=== PATIENT | female | born 1955 | race Caucasian/White ===

== ENCOUNTER 2018-02-27 05:47 | Observation (INO) | payer OTHER ==
--- NOTE | 2018-02-14 14:23 | HP ---
HISTORY AND PHYSICAL: DATE OF ADMISSION/SURGERY: 02/27/18 DATE OF OFFICE VISIT: 02/14/18 SURGEON: Heather Garcia MD * (DICTATED BY TALHA NGUYEN) PROCEDURE: Left total knee arthroplasty. CHIEF COMPLAINT: Left knee pain. HISTORY OF PRESENT ILLNESS: Ms. Hughes is a 62-year-old female with continued complaints of left knee pain secondary to end-stage osteoarthritis. She has failed conservative treatment and elected to proceed with a left total knee arthroplasty. PAST MEDICAL HISTORY: High cholesterol and hypothyroidism. PAST SURGICAL HISTORY: Right total knee arthroplasty, right carpal tunnel release. CURRENT MEDICATIONS: 1. Atorvastatin calcium 20 mg daily. 2. Levothyroxine 25 mcg daily. 3. Vitamin D3. 4. Meloxicam. ALLERGIES: PENICILLIN, SULFA, and LATEX. FAMILY HISTORY: Diabetes, heart disease, and stroke. SOCIAL HISTORY: She is a 62-year-old female, she lives with her . She does not smoke or use drugs. She uses occasional alcohol. REVIEW OF SYSTEMS: A complete 14-point review of systems was reviewed with the patient, was positive for hypothyroidism. She denies a history of DVT, PE, hepatitis, HIV, or anesthesia problems. PHYSICAL EXAMINATION GENERAL: She is well developed, well nourished, in no acute distress. VITAL SIGNS: She stands 67 inches tall, weighs 190 pounds. Her blood pressure is 122/70 and her heart rate is 78. HEENT: Normocephalic, atraumatic. NECK: Supple. No palpable lymph nodes. PULMONARY: The lungs are clear to auscultation bilaterally. CARDIO: Regular rate and rhythm. Strong S1, S2. ABDOMEN: Soft, nontender, nondistended. NEUROLOGICAL: She is alert and oriented x3. Cranial nerves II through XII are intact. MUSCULOSKELETAL: Left lower extremity: The skin is intact. There are no open wounds or abrasions. She has a moderate joint effusion. There is a 12-degree valgus deformity of the knee that corrects passively by 5 degrees. Her range of motion is 5 to 120 degrees of flexion. She has tenderness over the medial and lateral joint line. 2+ dorsalis pedis pulses. Intact sensation in her lower extremity. Muscle group strengths are intact at 5/5. ASSESSMENT AND PLAN: Ms. Hughes is a 62-year-old female with complaints of left knee pain due to end-stage osteoarthritis. She has failed conservative treatment and elected to proceed with a left total knee arthroplasty, which is scheduled for 02/27/[address] Garcia discussed the risks and the benefits of the surgery at today's visit and all of her questions were answered. She will follow up with Dr. Garcia 2 weeks after the surgery. TALHA NGUYEN [id number]/[facility] #: [id number] [facility]ITALMair
[~2018-02-27 05:47] MED LIST: Buffered Lidocaine 0.9% SYRIN* 5 ML/SYR SYRINGE INTRADERM ONE
[2018-02-27] MEDS ORDERED: Acetaminophen TAB* 325 MG PO ONE (06:00)
[2018-02-27] MEDS ORDERED: celeCOXIB CAP* 200 MG PO ONE (06:00)
[2018-02-27] MEDS ORDERED: Gabapentin CAP(*) 300 MG PO ONE (06:00)
[2018-02-27] MEDS ORDERED: celeCOXIB CAP* 100 MG ONE (06:10)
[2018-02-27] MEDS ORDERED: Acetaminophen TAB* 325 MG ONE (06:10)
[2018-02-27] MEDS ORDERED: Gabapentin CAP(*) 300 MG ONE (06:10)
[2018-02-27] MEDS ORDERED: Tranexamic Acid 1,000 MG/10 ML SDV IV ONE (06:11)
[2018-02-27] MEDS ORDERED: Clindamycin 900 MG IVPREMIX(* 900 MG/50 ML SDV IV ONE (06:11)
[2018-02-27] MEDS ORDERED: Bupivacaine 0.5% PF 10 ML VIAL INJ ONE ×2 (06:59→08:15)
[2018-02-27] MEDS ORDERED: fentaNYL* 50 MCG/ML 2 ML VIAL (100 MCG VIAL) ONE (07:02)
[2018-02-27] MEDS ORDERED: Midazolam* 1 MG/ML 2 ML VIAL (2 MG) ONE ×2 (07:03→08:26)
[2018-02-27] MEDS ORDERED: ROPIVACAINE 5 MG/ML 30 ML BTL (0.5%) ONE (07:15)
[2018-02-27] MEDS ORDERED: Famotidine IV* 10 MG/ML 2 ML (20 mg) ONE (07:52)
[2018-02-27] MEDS ORDERED: Dexamethasone IV* 4 MG/ML 1 ML (4 MG) ONE (07:52)
[2018-02-27] MEDS ORDERED: diPHENhydraMINE IV* 50 MG/ML 1 ml VIAL (BENADRYL) ONE (07:52)
[2018-02-27] MEDS ORDERED: Dexmedetomidine* 200 MCG/2 ML 2 ML VIAL ONE (07:53)
[2018-02-27] MEDS ORDERED: Bupivacaine-MPF SPINAL* 7.5 MG/ML - 2ML AMP ONE (08:15)
[2018-02-27] MEDS ORDERED: Hetastarch 6% in NS* 500 ML IV ONE (08:27)
[2018-02-27] MEDS ORDERED: Ondansetron ODT TAB* 4 MG PO PRN (08:50)
[2018-02-27] MEDS ORDERED: HYDROmorphone INJ* 0.5 MG/0.5 ML SYRINGE IV PRN (08:50)
[2018-02-27] MEDS ORDERED: Acetaminophen TAB* 325 MG PO PRN ×2 (08:50→10:05)
[2018-02-27] MEDS ORDERED: Naloxone* 0.4 MG/ML 1 ML VIAL IV PRN (08:50)
[2018-02-27] MEDS ORDERED: Nalbuphine* 10 MG/ML 1 ML VIAL IV PRN (08:50)
[2018-02-27] MEDS ORDERED: Scopolamine 1.5 mg* PATCH TRANSDERM PRN (08:50)
[2018-02-27] MEDS ORDERED: HYDROcodone/ACETAMIN 5-325 MG* 1 TAB PO PRN ×2 (08:50)
[2018-02-27] MEDS ORDERED: DiMENhydriNATE IV* 50 MG/ML VIAL IV PUSH PRN (08:50)
[2018-02-27] MEDS ORDERED: PROCHLORPERAZINE INJ 5 MG/ML 2 ML VIAL IV PRN (08:50)
[2018-02-27] MEDS ORDERED: diPHENhydraMINE IV* 50 MG/ML 1 ml VIAL (BENADRYL) IV PRN ×2 (08:50→10:05)
[2018-02-27] MEDS ORDERED: fentaNYL* 50 MCG/ML 2 ML VIAL (100 MCG VIAL) IV PRN (08:50)
[2018-02-27] MEDS ORDERED: Ondansetron INJ* 2 MG/ML VIAL IV PRN ×2 (08:50→10:05)
[2018-02-27] MEDS ORDERED: Polyethylene Glycol 3350* 17 GM PACKET PO PRN (10:05)
[2018-02-27] MEDS ORDERED: Cyclobenzaprine TAB* 10 MG PO PRN (10:05)
[2018-02-27] MEDS ORDERED: Bisacodyl SUPP* 10 MG SUPP PR PRN (10:05)
[2018-02-27] MEDS ORDERED: Ondansetron TAB* 4 MG PO PRN (10:05)
[2018-02-27] MEDS ORDERED: Magnesium Hydroxide LIQ* 30 ML UDC PO PRN (10:05)
[2018-02-27] MEDS ORDERED: HYDROmorphone INJ* 0.5 MG/0.5 ML SYRINGE IV SLOW PU PRN (10:12)
--- NOTE | 2018-02-27 11:06 | RAD ---
HISTORY: s/p left TKA COMPARISONS: January 17, 2018 VIEWS: 2, Frontal and lateral views of the left knee FINDINGS: BONE DENSITY: Normal. BONES: The patient is status post left knee arthroplasty. There is no hardware failure or osteolysis. JOINTS: The patient is status post left knee arthroplasty. ALIGNMENT: There is no dislocation. SOFT TISSUES: There is postsurgical change to the soft tissues. OTHER FINDINGS: None. IMPRESSION: STATUS POST LEFT KNEE ARTHROPLASTY
[2018-02-27] MEDS: oxyCODONE TAB* 5 MG TAB PO PRN ×2 (14:13→19:08)
[2018-02-27] MEDS: Clindamycin 600 MG IVPREMIX(* 600 MG/50 ML SDV IV SCH (16:06)
[2018-02-27] MEDS ORDERED: Warfarin TAB(*) 6 MG PO ONE (17:00)
[2018-02-27] MEDS: oxyCODONE/Acetamin 5/325 MG* TAB PO PRN ×2 (17:32→21:22)
[2018-02-27] MEDS: Magnesium Hydroxide LIQ* 30 ML UDC PO SCH (21:22)
[2018-02-27] MEDS: Docusate CAP* 100 MG PO SCH (21:22)
--- NOTE | 2018-02-28 | OP ---
DATE OF OPERATION: 02/27/18 - ROOM #342 DATE OF : 59. ATTENDING SURGEON: Heather Garcia M.D. WAREHOUSE PICKER: TALHA Colbert. Ms. Remy did help throughout the procedure with preparation of the leg, wound retraction, manipulation of the knee, and wound closure. ANESTHESIOLOGIST: Dr. Lawrence. ANESTHESIA: Spinal. PRE-OP DIAGNOSES: Severe end-stage degenerative osteoarthritis of the left knee joint, valgus deformity. POST-OP DIAGNOSES: Severe end-stage degenerative osteoarthritis of the left knee joint, valgus deformity. OPERATIVE PROCEDURE: Left total knee arthroplasty. BRIEF HISTORY/INDICATIONS: Ms. Hughes is a 63-year-old female with years of increasingly severe left knee pain. She failed conservative treatment with antiinflammatories, pain medications, intraarticular injections, and physical therapy. Due to continued pain and decreased quality of life, she elected to undergo a left total knee arthroplasty. Informed consent was obtained from the patient. She understood the risks of surgery included, but were not limited to bleeding, infection, damage to nearby structures, continued pain, need for further surgery, intraoperative fracture, nerve palsy, hardware failure or loosening, knee stiffness, loss of motion, stroke, heart attack, blood clot, and . She wishes to proceed. INTRAOPERATIVE FINDINGS: Intraoperatively, the patient was noted to have a 15- degree valgus deformity throughout the case. This was corrected to anatomic 5 degrees by the end of the case. She had full-thickness loss of cartilage in the lateral, medial, and patellofemoral compartments. She had lateral femoral condylar hypoplasia. COMPLICATIONS: None. ESTIMATED BLOOD LOSS: 200 mL. TOURNIQUET TIME: 45 minutes. SPECIMENS: Bone and cartilage from the left knee joint sent to Pathology. HARDWARE USED: This is a cemented [employer] total knee arthroplasty hardware. Two packages of simplex bone cement were used. For the femur, a left Legion 6 narrow Oxinium posterior stabilized femoral component. For the tibia, a left Kallie II size 5 tibial baseplate. For the insert, a 9-mm posterior stabilized articular insert size 5/6. For the patella, a 32-mm, 3- peg all poly patella with 7.5 thickness. DESCRIPTION OF PROCEDURE: Ms. Hughes was identified in the preanesthesia unit. Her left lower extremity was marked as the correct operative side. Informed consent was signed and placed in the chart. The patient was taken to the operating room and placed under spinal anesthesia. A Silver catheter was placed. Tourniquet was placed on the left side. The left lower extremity was prepped and draped in the usual sterile fashion. Preop time-out was made to correctly identify the patient, side, and site. Appropriate perioperative antibiotics were given within 1 hour of incision. A midline incision was made with a 10 blade and carried down to the extensor mechanism. A new 10 blade was used to make a standard medial parapatellar arthrotomy. The patella was subluxed laterally. Electrocautery was used to subperiosteally elevate the soft tissue off the superomedial tibia to the midsagittal plane. The knee was flexed up. The anterior horn of the lateral meniscus and ACL were sharply released. A drill was used to enter the distal femur. Intra-medullary distal femoral cutting guide was pinned on the distal femur. Oscillating saw was used to make the appropriate distal femoral cut. Lateral femoral condylar hypoplasia was noted and accounted for. External rotation guide was pinned on the distal femur and the distal femur was sized to a size 6. Size 6 multi-cutting jig was pinned on the distal femur. Oscillating saw was used to make the appropriate 4 chamfer cuts. The PCL was completely released. Extramedullary tibial cutting guide was pinned on the proximal tibia. Oscillating saw was used to make a proximal tibial cut perpendicular to the mechanical axis of the tibia. The bone was carefully removed. The knee was brought out into full extension and had full extension with this spacer block. There was good medial and lateral ligamentous balancing. Flexion and extension gaps were well balanced. The knee was flexed up. Lamina commutator v ring assembler was placed both medially and laterally. Any remaining meniscus was carefully removed using electrocautery. Curved osteotome was used to remove any posterior osteophytes. A tibial tray and drop sonu were placed and once again confirmed a satisfactory tibial cut and this was confirmed. A size 6 narrow left femoral trial was impacted onto the distal femur and had excellent fit. The box for the posterior stabilized implant was prepared using a reamer and box-cut osteotome. A size 5 tibial tray trial with a 9 mm insert trial was placed and the knee was taken through a range of motion. The knee had full extension to 130 degrees of flexion with good patellofemoral tracking. The patella was everted. A 7 mm of the patellar bone and cartilage was carefully removed using an oscillating saw. The patella was sized to a size 32. The three peg holes were drilled to a size 32 guide. A 32 trial patella with 7.5 thickness was placed. The knee was taken through range of motion. The patellofemoral tracking was satisfactory. All trials were carefully removed. The tibia was subluxed anteriorly and sized to a size 5. The proximal tibia was prepared using a size 5 keel punch. All bony cut surfaces were copiously irrigated with sterile saline and dried. Final implants were cemented into place starting with the tibia followed by the femur and lastly the patella. A 9 mm insert trial was placed while the knee was brought out into full extension. The tourniquet was turned down at 45 minutes. The knee was copiously irrigated with sterile saline. Electrocautery was used to obtain meticulous hemostasis. Once the cement had fully cured, the insert trial was removed. Any excess cement was carefully removed from around the capsule and hardware. Final insert chosen was a 9 mm posterior stabilized articular insert Kallie II size 5/6. This was locked into position on the tibial tray. Stability of the insert was checked and rechecked and noted to be stable. The knee was once again copiously irrigated with sterile saline. The extensor mechanism was closed using interrupted #1 Vicryl suture. The rest of the incision was closed in a layered fashion using 0 and 2-0 Vicryls. Skin was closed using running 3-0 nylon suture. Sterile Xeroform, 4x4s, and Webril were used to cover the incision. Avery wrap and cold pack were placed over this. The patient's anesthesia was reversed without difficulty. She was taken to the PACU in stable condition. Intended weightbearing will be weightbearing as tolerated. Intended DVT prophylaxis will be Coumadin with a Lovenox bridge. [id number]/[facility] #: [id number] [facility]ENTERMari
[2018-02-28] MEDS: Clindamycin 600 MG IVPREMIX(* 600 MG/50 ML SDV IV SCH ×2 (00:09→07:31)
[2018-02-28] MEDS: oxyCODONE/Acetamin 5/325 MG* TAB PO PRN ×2 (03:15→09:30)
[2018-02-28 05:49] LABS: Hematocrit 36 % (35-47); Hemoglobin 12.4 g/dl (12.0-16.0); Mean Platelet Volume 8.9 um3 (7.4-10.4); Platelet Count 195 10^3/ul (150-450)
[2018-02-28] MEDS: oxyCODONE TAB* 5 MG TAB PO PRN ×2 (05:58→12:45)
[2018-02-28 06:00] LABS: INR 0.93 (0.77-1.02)
[2018-02-28] MEDS ORDERED: Levothyroxine TAB* 25 MCG TAB PO SCH (06:00)
[2018-02-28 06:05] LABS: EGFR Non-African American 103.6 (>60)
--- NOTE | 2018-02-28 08:36 | PN ---
Progress Note - Progress Note Date of Service: 02/28/18 SOAP: Subjective: Pt is doing well. Progressing well with PT. Pain controlled. Denies CP/SOB, F/ C or calf pain. Objective: PE-63 y/o WDWN F NAD A&O x 3, sitting in bed comfortably LLE- dressing changed, inc c/d/i with no sign of infection, calf soft nt, +DF/ PF ankle, +2 Dp pulse, SILT distally Vital Signs Temp Pulse Resp BP Pulse Ox 98.4 F 79 16 140/76 99 02/28/18 07:45 02/28/18 07:45 02/28/18 07:45 02/28/18 07:45 02/28/18 07:45 Laboratory Results - last 24 hr 02/28/18 02/28/18 02/28/18 05:16 05:16 05:16 Hgb 12.4 Hct 36 Plt Count 195 MPV 8.9 INR (Anticoag Therapy) 0.93 Sodium 138 Potassium 4.0 Chloride 105 Carbon Dioxide 28 Anion Gap 5 BUN 9 Creatinine 0.59 Est GFR ( Amer) 125.4 Est GFR (Non-Af Amer) 103.6 BUN/Creatinine Ratio 15.3 Glucose 120 H Calcium 8.4 L Assessment: POD 1 S/P left total knee arthroplasty Plan: DC to home today with VNS Flexaril and percocet for pain colace for constipation coumadin for DVT prophylaxis F/U with Dr. Garcia 10-14 days post op
[2018-02-28] MEDS ORDERED: Atorvastatin* 20 MG TAB PO SCH (09:00)
[2018-02-28] MEDS: Docusate CAP* 100 MG PO SCH (09:30)
[2018-02-28] MEDS: Magnesium Hydroxide LIQ* 30 ML UDC PO SCH (09:30)
[2018-02-28] MEDS ORDERED: Enoxaparin(*) 30 MG/0.3 ML SYR SUBCUT SCH (12:00)
[2018-02-28 13:30] VITALS: BP 154/83
--- NOTE | 2018-02-28 13:49 | DS ---
DISCHARGE SUMMARY: DATE OF ADMISSION: 02/27/18 DATE OF DISCHARGE: 02/28/18 DATE OF SURGERY: 02/27/18 ATTENDING SURGEON: Heather Garcia MD.* (DICTATED BY TALHA LLAMAS) ADMITTING DIAGNOSIS: Status post left knee arthroplasty for severe left knee osteoarthritis. CONSULTATIONS: PT, OT. HISTORY OF PRESENT ILLNESS: Ms. Hughes is a 63-year-old female who presents to the clinic for left knee pain due to end-stage osteoarthritis. She failed conservative measures and agreed to undergo a left total knee arthroplasty with Dr. Garcia on 02/27/18. HOSPITAL COURSE: Ms. Hughes was admitted to [facility] on 02/27/18. She underwent a left total knee arthroplasty. Postoperatively, she recovered from short-stay surgical unit. Post day 1, Silver was removed. She was able to urinate on her own. She advanced her regular diet without difficulty and the pain was controlled with oral Percocet and restarted on home medications. Labs and vitals remained stable. She is able to weight bear as tolerated on the left lower extremity. She advanced appropriately with PT and OT. DVT prophylaxis was managed with Lovenox and Coumadin. By postop day 1, she is orthopedically and medically stable to home. Discharged to home with VNS services. DISCHARGE CONDITION: Stable. DISCHARGE MEDICATIONS: Home medications resumed on discharge to include: 1. Lipitor 20 mg 1 by mouth in the morning. 2. Vitamin D3 one by mouth in the morning. 3. Levothyroxine 25 mcg 1 by mouth in the morning. 4. Meloxicam 7.5 mg 1 by mouth twice day. This was discontinued. 5. Flexeril 10 mg 1 by mouth 3 times a day. 6. Colace 100 mg 1 by mouth twice day. 7. Percocet 5/325 mg 1 to 2 every 4 to 6 hours as needed for pain. 8. Warfarin 2 mg take daily as directed by doctor. DISCHARGE INSTRUCTIONS: The patient is okay to discharge on postop day 3. No bathing, swimming, submerging the wound. Use gentle soap and pat dry, cover with gauze, Avery and tape. Call orthopedic office with increased drainage, redness, increase pain, or fever. Go to the ER with chest pain or shortness of breath. Regular diet with increased fluid to prevent constipation. Continue to use stool softeners. Call if no bowel movement within 48 hours. Continue PT and OT as shown. Visiting home nurses to do wound check. Visiting home nurses to do blood draws on Saturday and . Coumadin dosing 8 mg on 02/28/18, 8 mg on 03/01/18, 6 mg 03/02/18. Redraw INR on 03/03/18. Stop meloxicam while on Coumadin. She should avoid aspirin, naproxen, ibuprofen while on Coumadin. Percocet for pain control with cyclobenzaprine for muscle spasm. She will require antibiotics prior to any dental work and follow with Dr. Garcia 10 to 14 days after surgery. She may call for an appointment. TALHA LLAMAS [id number]/[facility] #: [id number] JASWANT
[2018-03-02] MEDS ORDERED: Scopolamine PATCH Remove* 1 NOTE MISC PATCH OFF ONE (08:51)
== END 2018-02-28 12:50 | disposition home or self-care (01) ==
LOC: OR 05:47 → SSU 13:29
PROVIDERS: ADMIT Orthopaedic Surgery Adult Reconstructive Orthopaedic Surgery; ATTEND Orthopaedic Surgery Adult Reconstructive Orthopaedic Surgery
PROC: 0SRD0J9 Replacement of Left Knee Joint with Synthetic Substitute, Cemented, Open Approach (ICD-10-PCS; principal; 2018-02-27 07:30)
DX: M17.12 Unilateral primary osteoarthritis, left knee (principal); M25.562 Pain in left knee; Z88.9 Allergy status to unspecified drugs, medicaments and biological substances; E03.9 Hypothyroidism, unspecified; E78.5 Hyperlipidemia, unspecified
CPT/HCPCS: 36415; 80048; 85014; 85018; 85049; 85610; 88305; 88311; A9270-GY; C1776; G0378; G8987-GO-CJ; G8988-GO-CJ; G8989-GO-CJ; J1100; J1200; J2250; J2795; J3010

== ENCOUNTER → 2018-05-15 05:48 | Day surgery (SDC) | payer OTHER ==
--- NOTE | 2018-05-12 14:31 | HP ---
HISTORY AND PHYSICAL: DATE OF ADMISSION/SURGERY: 05/15/18 DATE OF OFFICE VISIT: 05/09/18 SURGEON: Heather Garcia MD * (DICTATED BY TALHA NGUYEN) PROCEDURES: Manipulation under anesthesia left total knee arthroplasty. CHIEF COMPLAINT: Left total knee arthroplasty with stiffness. HISTORY OF PRESENT ILLNESS: Ms. Hughes is a 63-year-old female with stiffness in her left total knee arthroplasty. She has elected to proceed with manipulation under anesthesia. PAST MEDICAL HISTORY: Hypothyroidism and high cholesterol. PAST SURGICAL HISTORY: Right total knee arthroplasty, left total knee arthroplasty, carpal tunnel release. CURRENT MEDICATIONS: 1. Atorvastatin calcium 20 mg a day. 2. Levothyroxine 25 mcg daily. 3. Vitamin D. 4. Percocet 5/325. 5. Flexeril. ALLERGIES: To PENICILLIN, SULFA, and LATEX. FAMILY HISTORY: Diabetes, stroke, and heart disease. SOCIAL HISTORY: She is a 63-year-old female. She does not smoke or use drugs. REVIEW OF SYSTEMS: A complete 14-point review of systems was reviewed with the patient and was all negative or noncontributory. PHYSICAL EXAMINATION GENERAL: She is well developed, well nourished, in no acute distress. VITAL SIGNS: She stands 67 inches tall, weighs 190 pounds. Her blood pressure 107/68, her heart rate is 72. HEENT: Normocephalic, atraumatic. NECK: Supple. No palpable lymph nodes. PULMONARY: Lungs are clear to auscultation bilaterally. CARDIO: Regular rate and rhythm. Strong S1 and S2. ABDOMEN: Soft, nontender, nondistended. NEUROLOGIC: She is alert and oriented x3. MUSCULOSKELETAL: Left lower extremity, the skin is intact. There are no open wounds or abrasions. The incision is well healed. There remains some moderate effusion of the left knee, range of motion is 0 to 90 degrees. She is distally neurovascularly intact. ASSESSMENT AND PLAN: Ms. Hughes is a 63-year-old female with stiffness of her left total knee arthroplasty. She has elected to proceed with manipulation under anesthesia of her left total knee arthroplasty which is scheduled for . Dr. Garcia discussed the risks and benefits and all of her questions were answered. TALHA NGUYEN [id number]/[facility] #: [id number] JASWANT
[~2018-05-15 05:48] MED LIST changes: +Ibuprofen TAB* 600 MG ONE; +Ketorolac INJ* 30 MG/ML 1 ML VIAL IV PRN; +Lidocaine 2% PF * 5 ML VIAL ONE; +Morphine VIAL* 10 MG/ML 1 ML VIAL ONE; +Naloxone* 0.4 MG/ML 1 ML VIAL IV PRN; +Ondansetron INJ* 2 MG/ML VIAL IV PRN; +Propofol* 10 MG/ML 20 ML BTL IV PUSH ONE; +Sodium Citrate/Citric Acid* 15 ML UDC ONE; +Sodium Citrate/Citric Acid* 15 ML UDC PO ONE; +fentaNYL* 50 MCG/ML 2 ML VIAL (100 MCG VIAL) ONE; +oxyCODONE/Acetamin 5/325 MG* TAB ONE
[2018-05-15] MEDS: fentaNYL* 50 MCG/ML 2 ML VIAL (100 MCG VIAL) IV PRN ×4 (08:02→08:26)
[2018-05-15 08:44] VITALS: BP 118/92
--- NOTE | 2018-05-16 08:09 | OP ---
DATE OF OPERATION: 05/15/18 - [facility] DATE OF : 59 ATTENDING SURGEON: Heather Garcia MD ANESTHESIOLOGIST: Dr. Hernandez. ANESTHESIA: General. PRE-OP DIAGNOSIS: Left total knee arthroplasty with pain and stiffness. POST-OP DIAGNOSIS: Left total knee arthroplasty with pain and stiffness. OPERATIVE PROCEDURE: Manipulation under anesthesia arthrofibrotic left total knee arthroplasty. BRIEF HISTORY/INDICATIONS: Ms. Hughes is a 63-year-old female. She is now almost 10-week status post left total knee arthroplasty in the beginning of February 2018. Postoperatively, she struggled from the beginning with range of motion and pain. She developed stiffness with 10 to 90 degrees of flexion. She had normal radiographs and wished to proceed manipulation under anesthesia. Informed consent was obtained from the patient. She understood the risks of surgery included, but not were not limited to, bleeding, infection, damage to nearby structures, continued pain, need for further surgery, continued stiffness , intraoperative fracture, nerve palsy, hardware failure, stroke, heart attack, clot, and . She wished to proceed. INTRAOPERATIVE FINDINGS: The patient was noted at the beginning of the procedure to have a flexion contracture of 10 degrees and ability to flex the knee to 90 degrees. The knee was stiff with obvious scar tissue. With procedure, the patient had 5 to 130 degrees of flexion. COMPLICATIONS: None. ESTIMATED BLOOD LOSS: None. SPECIMEN: None. DESCRIPTION OF PROCEDURE: Ms. Hughes was identified in the preanesthesia unit. Her left lower extremity was marked as the correct operative side. Informed consent was signed and placed in the chart. The patient was taken to the operating room and placed under general anesthesia. A preop time-out was made. The patient's knee was noted to have 10 to 90 degrees of flexion with significant scar tissue and stiffness. There was no significant effusion. No erythema. No warmth. Gentle manipulation of full extension with some pressure and flexion with some pressure. With audible and palpable scar tissue breakup, the knee was easily flexed to 130 degrees. AP and lateral C-arm views were taken of both the femur and tibia to ensure no periprosthetic fracture. No fracture was identified. Intraoperative photos were taken to document the amount of changes. The patient's anesthesia was reversed without difficulty. She was taken to the PACU in stable condition. Intended weightbearing will be as tolerated. Intended DVT prophylaxis will be aspirin. [id number]/[facility] #: [id number] [facility]ITAL[facility]
--- NOTE | 2018-05-16 08:47 | RAD ---
INDICATION: Left knee manipulation under fluoroscopic guidance. COMPARISON: Comparison is made with a prior x-ray study of the left knee from April 11, 2018. TECHNIQUE: 2.6 seconds of intermittent fluoroscopic guidance were provided and 4 spot films of the left knee were obtained in the operating room. FINDINGS: The patient is status post total left knee replacement surgery. IMPRESSION: INTRAOPERATIVE CONTROL FILMS. CPT II Codes: G9500
== END | disposition home or self-care (01) ==
LOC: OR 05:48
PROVIDERS: ATTEND Orthopaedic Surgery Adult Reconstructive Orthopaedic Surgery
DX: T84.82XA Fibrosis due to internal orthopedic prosthetic devices, implants and grafts, initial encounter (principal); Z96.652 Presence of left artificial knee joint; M25.662 Stiffness of left knee, not elsewhere classified; E03.9 Hypothyroidism, unspecified; E78.00 Pure hypercholesterolemia, unspecified
CPT/HCPCS: 76000; A9270-GY; J2270; J2704; J3010